=== PATIENT | female | born 1975 | race Hispanic/Latino ===

== ENCOUNTER → 2017-12-22 16:28 | Outpatient (CLI) | payer OTHER, SELFPAY ==
[2017-12-28 14:07] LABS: Lyme IgG P18 Ab Absent (.); Lyme IgG P23 Ab Absent (.); Lyme IgG P28 Ab Absent (.); Lyme IgG P30 Ab Absent (.); Lyme IgG P39 Ab Absent (.); Lyme IgG P41 Ab Absent (.); Lyme IgG P45 Ab Absent (.); Lyme IgG P58 Ab Absent (.); Lyme IgG P66 Ab Absent (.); Lyme IgG P93 Ab Absent (.); Lyme IgM P23 Ab Absent (.); Lyme IgM P39 Ab Absent (.); Lyme IgM P41 Ab Absent (.)
[2017-12-28 15:48] LABS: Lyme IgG WB Interpretation Negative (.); Lyme IgM WB Interpretation Negative (.)
== END ==
PROVIDERS: Family Provider Family Medicine; PCP Family Medicine; Visit Provider Family Medicine
DX: M25.50 Pain in unspecified joint (principal)
CPT/HCPCS: 36415; 86617

== ENCOUNTER → 2018-01-14 06:42 | Outpatient (CLI) | payer OTHER, SELFPAY ==
--- NOTE | 2018-01-14 06:44 | CT_ITS ---
STUDY: CT ABDOMEN AND PELVIS WITH CONTRAST REASON FOR EXAM: Female, 42 years old. Left lower quadrant pain RADIATION DOSAGE (If Supplied By Facility): CTDIvol = ( 13.29 ) mGy, DLP = ( 843.24 ) mGycm TECHNIQUE: Transaxial images were obtained from the lower chest to the upper thighs with oral contrast. 100 ml of Isovue 300 contrast was administered. Sagittal and coronal images were reconstructed. Individualized dose optimization techniques were used for this CT. COMPARISON: November 16, 2016 FINDINGS: The visualized lung bases are unremarkable. There is no pleural effusion. The heart is normal in size. The liver is unremarkable. There are surgical clips in the gallbladder fossa consistent with a prior cholecystectomy. The spleen is unremarkable. The pancreas is unremarkable. The adrenal glands are unremarkable. The right kidney is unremarkable. There is no dilatation of the collecting system in the right kidney. The left kidney is unremarkable. There is no dilatation of the collecting system in the left kidney. The stomach is unremarkable. The small bowel is unremarkable. There is mild wall thickening in the sigmoid. The appendix is surgically absent. The aorta and branch vessels are unremarkable. The inferior vena cava is unremarkable. There are prominent lymph nodes in the right lower quadrant. There is no free fluid in the abdomen. The urinary bladder is decompressed. There is absence of the uterus likely from prior hysterectomy. There are no abnormal masses in the adnexal regions. The soft tissues of the abdominal wall are unremarkable. There are mild degenerative changes in the visualized spine. CT/Abdomen/Pelvis WITH Contrast IMPRESSION: There is mild nonspecific wall thickening in the sigmoid likely secondary to incomplete distention, however a mild colitis cannot be excluded, either infectious or inflammatory. There is no ascites or free air. There are prominent lymph nodes in the right lower quadrant which are likely reactive. Electronically Signed: Aminah Figueredo MD at 0:45 EDT Tel Direct: [phone], Service support ,
== END ==
LOC: CT 06:43
PROVIDERS: Family Provider Family Medicine; PCP Family Medicine; Visit Provider Surgery
DX: R10.32 Left lower quadrant pain (principal); R11.2 Nausea with vomiting, unspecified
CPT/HCPCS: 74177; Q9967

== ENCOUNTER 2018-02-02 13:10 | Day surgery (SDC) | payer OTHER, SELFPAY ==
[2018-02-02] VITALS (8 sets, daily range): BP systolic 87–105; BP diastolic 41–74; PULSE 55–67; RESP 16; TEMP 36.2–36.6; O2SAT 94–100; BMI 29.7
--- NOTE | 2018-02-02 | GASB_PTH ---
PATIENT: DANDRE BURT LOC: EN U#:[id number] AGE/SX: 42/F ROOM: RE02/02/[address]: Dr. Raghav Jimenez MD : 1975 BED: DIS: 02/02/2018 SPEC #: [id number] RECD: 02/03/18 09:12 STATUS: MARY JANE JANNET #: [id number] PERLA: 02/02/18 00:[address]: Raghav Jimenez DEPT: SURGICAL PATHOLOGY RECD BY: Arnoldo Richmond ENTERED: 02/03/18 09:12 SP TYPE: Gastric Bx OTHR DR: Dr. Petty Cook, DO Tissues: A - Gastric mucous membrane B - COLON BIOPSY Procedures: Surgery Specimen Level IV HEADER OPERATION: [place] [place] DIAGNOSIS: Rectal bleeding, constipation, abdominal pain TISSUE SUBMITTED: A ? Antral biopsy for H. pylori and pathology, B ? Random colonic biopsies MICROSCOPIC DIAGNOSIS A. Gastric antrum, biopsy: Mild chronic gastritis. B. Colon, random biopsy: No significant pathologic change. No evidence of colitis. AM:anisha 02/04/18 COMMENT A. The results of immunohistochemistry for Helicobacter pylori will be reported separately ([id number]). MICROSCOPIC DESCRIPTION Slides are reviewed. GROSS DESCRIPTION A - Received in fixative is one container labeled with the patient's name and designated antral biopsy. The specimen consists of one irregular fragment of light felipe soft tissue that measures 0.3 x 0.2 x 0.1 cm. The specimen is totally submitted in one cassette. B - Received in fixative is one container labeled with the patient's name and designated random colon. The specimen consists of multiple irregular fragments of light felipe soft tissue that in aggregate measure 2 x 0.6 x 0.1 cm. The specimen is totally submitted in one cassette. / AM:anisha 02/03/18 TC:3 CPT: 71942 x2
--- NOTE | 2018-02-02 14:24 | PCM.OPRPT ---
Problem List (1) Lower abdominal pain Status: Acute (2) H/O peptic ulcer Status: Acute (3) Bleeding per rectum Status: Acute (4) Constipation Status: Acute Report of Operation Date of Procedure: 02/02/18 Pre-Operative Diagnosis: History of peptic ulcer. Lower abdominal pain. Rectal bleeding. Constipation Post-Operative Diagnosis: Same Surgery/Procedure Performed:: 1. Esophagogastroduodenoscopy with biopsy (cold). Colonoscopy with random colon biopsies Type of Anesthesia:: MAC Description of Procedure: Patient was brought into the endoscopy suite. Back of her throat was sprayed with Cetacaine spray. A bite block was placed. She was given graded anesthesia. The scope was inserted into the back of the oropharynx and directed down through the esophagus into the stomach and into the duodenum without difficulty operative findings: 1. Duodenum: Normal appearance no mass lesions no ulcerations 2. Stomach: Normal appearance no mass lesions no ulcerations minimal gastritis was identified biopsy for H. pylori was obtained. Retroflexion did not show any signs of hiatal hernia. 3. Esophagus: Normal appearance no mass lesions Z line was at about 34 cm and was entirely normal there was no signs of esophagitis there is no signs of bleeding. Colonoscope was inserted in the rectum directed to the rectum, sigmoid colon, descending colon, transverse colon, descending colon, to the cecum. Operative findings: 1. Cecum: Normal appearance no mass lesions normal ileocecal valve. 2. Ascending colon: Normal appearance no mass lesions. 3. Transverse colon: Normal appearance no mass lesions. 4. Descending colon: Normal appearance no mass lesions. 5. Sigmoid colon: Normal appearance no mass lesions few diverticuli identified. 6. Rectum: Normal appearance no mass lesions retroflexion did show some internal hemorrhoids with a question of whether they have been bleeding or not. I did random colon biopsies from the cecum all the way to the rectum. The mucosa did look normal there was no signs of any active bleeding I did irritate the rectum when I retroflexed to take a picture of the hemorrhoids but prior to that the mucosa was normal. There is really no explanation for the pain that she is experiencing at this time based upon my findings from both the upper and lower endoscopy. - Admit VTE Documentation VTE Present on Admission: No VTE Mechan Device Prophylaxis: None VTE Pharm Prophylaxis ordered?: No Reason prophylaxis not ordered:: Treatment Not Indicated
--- NOTE | 2018-02-02 14:30 | IMM_PTH ---
PATIENT: DANDRE BURT LOC: EN U#:[id number] AGE/SX: 42/F ROOM: RE02/02/[address]: Dr. Raghav Jimenez MD : 1975 BED: DIS: 02/02/2018 SPEC #: [id number] RECD: 02/03/18 10:08 STATUS: MARY JANE REQ #: [id number] PERLA: 02/02/18 14:[address]: Raghav Jimenez DEPT: IMMUNOHISTOCHEMISTRY RECD BY: Elisa Sierra ENTERED: 02/03/18 10:09 SP TYPE: IMMUNO OTHR DR: Dr. Petty Cook, DO Tissues: A - Stomach, NOS Procedures: H Pylori (initial) PHYSICIAN & INSTITUTION [place] [id number] SPECIMEN INFORMATION: Tissue Source: A ? Antral biopsy Clinical Info: Rectal bleeding, constipation, abdominal pain Specimen Number: [id number] CPT code: 82507 METHODOLOGY: Deparaffinized sections of prefer/formalin-fixed tissue or PAP/DQ stained slides are incubated with monoclonal/polyclonal antibodies/oligonucleotide probes. Localization is made via biotin free immunoperoxidase method. Appropriate controls are performed and reacted as expected. Results on target cell population are indicated in the following table: RESULTS: ANTIBODY / CLONE RESULT Block A H Pylori (polyclonal) negative These tests were developed and their performance characteristics determined by [facility]. They may not have been cleared or approved by the U.S. Food and Drug Administration. The FDA has determined that such clearance or approval is not necessary. INTERPRETATION: A. Antrum, biopsy: Negative for Helicobacter pylori organisms. AM:anisha 02/04/18
[2018-02-02] MEDS: Morphine 2 MG/ML Syringe IV (14:53)
== END 2018-02-02 17:18 | disposition home or self-care (01) ==
LOC: EN 13:11 → AC 13:18
PROVIDERS: Family Provider Family Medicine; PCP Family Medicine; Visit Provider Surgery
PROC: 0DJD8ZZ Inspection of Lower Intestinal Tract, Via Natural or Artificial Opening Endoscopic (ICD-10-PCS; CPT 45378; principal; 2018-02-02 14:25)
DX: K29.50 Unspecified chronic gastritis without bleeding (principal); K57.30 Diverticulosis of large intestine without perforation or abscess without bleeding; K64.8 Other hemorrhoids; K62.5 Hemorrhage of anus and rectum; K59.00 Constipation, unspecified; K21.9 Gastro-esophageal reflux disease without esophagitis; R10.32 Left lower quadrant pain; Z87.11 Personal history of peptic ulcer disease; F17.200 Nicotine dependence, unspecified, uncomplicated
CPT/HCPCS: 43239; 45380; 88305; 88342; J7040; J7120

== ENCOUNTER 2018-12-07 12:27 | Emergency (ER) | payer OTHER, SELFPAY ==
[2018-12-07 12:28] VITALS: BP 116/69; PULSE 70; RESP 16; TEMP 36.4; BMI 30.6
--- NOTE | 2018-12-07 12:36 | EKG12_ITS ---
Test Reason : NEURO S/X Blood Pressure : / mmHG Vent. Rate : 070 BPM Atrial Rate : 070 BPM P-R Int : 158 ms QRS Dur : 086 ms QT Int : 406 ms P-R-T Axes : 032 031 009 degrees QTc Int : 438 ms Normal sinus rhythm Normal ECG Confirmed by AMELIE ANTUNEZ, WINSOME ([id number]), development editor TYREL GLOVER ([id number]) on 12/12/2018 1:26:05 PM Referred By: VERO Confirmed By:WINSOME KINSEY MD
--- NOTE | 2018-12-07 12:36 | CT_ITS ---
STUDY: CT BRAIN WITHOUT CONTRAST REASON FOR EXAM: Female, 42 years old. Numbness. RADIATION DOSAGE (If Supplied By Facility): CTDIvol = ( 44.99 ) mGy, DLP = ( 762.36 ) mGycm TECHNIQUE: Transaxial CT imaging of the brain was performed without administration of intravenous contrast material. Individualized dose optimization techniques were used for this CT. COMPARISON: No relevant priors. FINDINGS: Normal soft tissue structures. Normal calvarium. Normal size ventricles and extra-axial spaces for the patient's age. Normal white matter tracts of the cerebral hemispheres. Normal basal ganglia and thalami. Normal brainstem. Normal cerebellum. There is no intracranial hemorrhage. There are no findings of an acute ischemic infarction. Minimal mucosal thickening at the base of the right maxillary sinus along the medial wall. CT/Brain/Head without Contrast IMPRESSION: Normal unenhanced CT scan of the brain. Electronically Signed: Cheng Hughes, at 14:00 EDT , Service support ,
--- NOTE | 2018-12-07 12:47 | RAD_ITS ---
STUDY: X-RAY CHEST REASON FOR EXAM: Female, 42 years old. Chest pain. TECHNIQUE: Single AP portable view of the chest. COMPARISON: None. FINDINGS: EKG electrodes are seen. The lungs are clear and expanded. There is no demonstrated pleural abnormality. Normal size heart. Normal mediastinum and kanwal. Normal visualized pulmonary arteries. Normal visualized aortic arch and descending thoracic aorta. Normal visualized thoracic spine. Normal visualized ribs, clavicles, and shoulders. There is no demonstrated abnormality of the visualized soft tissue structures of the upper abdomen. RAD/Chest 1 View (Portable) IMPRESSION: Normal x-ray examination of the chest. Electronically Signed: Cheng Hughes, at 13:13 EDT , Service support ,
--- NOTE | 2018-12-07 12:53 | ED.DCSUM_ITS ---
History of Present Illness Chief Complaint: Neuro S/Sx Informant: Patient, Family Onset: Days Narrative: The patient presents with headache diffuse consistent with her chronic migraine headache history disorder. She had an extensive prior evaluation for the headache disorder has been seen by [facility] headache specialists imaging studies etc. she has no history of brain tumor brain aneurysm, at one point time she was receiving Botox injections monthly as she has daily headaches however her status changed and she could not arrange to have these injections sure she has not had them for 2 years, she indicates she normally will take Naprosyn almost daily for headache. She reports for days she has had her typical headache that has not improved with the Naprosyn she also reports she has had intermittent numbness to her face and her left upper extremity that she has had in the past related to headaches or other conditions. She has no history of PA PE or DVT she has been evaluated by her reports for stroke in the past and this work-up was unremarkable. Her chief complaint right now is the headaches and the facial numbness and the numbness that is diffuse to her left upper extremity she no reports no change in vision normal neurologic function able to extend all of her daily activities, no fever no cough no chest pain no abdominal pain no history of PA PE DVT Past Medical History - Allergies and Home Meds Allergies/Adverse Reactions: Allergies No Known Allergies Allergy (Verified 12/07/18 12:30) Primary Care Physician: Petty Cook DO [Primary Care Provider] - Past Medical History: - - Chronic daily headaches Smoking Status: Current every day smoker Review of Systems General: Denies: Chills, Fever, Sweats Eyes: Denies: Visual changes - bilaterally, Diplopia ENT: Denies: Rhinorrhea, Sore throat Cardiovascular: Denies: Chest pain, Palpitations Respiratory: Denies: Dyspnea, Cough, Dyspnea on exertion Gastrointestinal: Denies: Abdominal pain, Nausea, Vomiting, Diarrhea, Melena, Hematochezia Genitourinary: Denies: Dysuria, Hematuria, Frequency Musculoskeletal: Denies: Back pain, Extremity Pain Skin: Denies: Rash, Wounds Neurological: Reports: Headache, Numbness. Denies: Weakness Physical Exam Vital Signs/Narrative: Vital Signs Temp Pulse Resp BP 12/07/18 12:28 97.6 F L 70 16 116/69 General: Well nourished, Well developed, No Acute Distress Head: Normocephalic, Atraumatic Eyes: Perrl, EOMI ENT: Moist mucous membranes, No rhinorrhea Neck: Supple, Nontender Cardiovascular: Regular rate, Regular rhythm, No murmurs Respiratory: No distress, CTA bilaterally, Chest nontender Abdomen: Soft, Nontender, Nondistended, Normal bowel sounds Back: Nontender, Normal Inspection Extremities: Nontender, No edema Skin: Normal color, No rash Neurological: Alert, Oriented x3, Cranial nerves II-XII grossly intact, Normal Strength, Normal Sensation, - - Neurologic exam her cranial nerves her speech motor or sensory cerebellar gait unremarkable NIH 0 she subjectively takes her hand and draws it across her chin complaining of a numbness sensation here, she then takes it and draws it across her left shoulder and left upper arm complaining of numbness here she has full range of motion of upper and lower extremities there is no signs of obvious sensory motor or cerebellar deficit Psychological: Normal affect, Normal Mood Diagnostic/Tx/Re-eval - Medical Decision Making Her complaints of the above screening labs head CT Compazine Benadryl for the headache The patient's head CT and screening labs are all generally unremarkable see those reports, and reevaluation her headache is totally resolved the numbness to her chin is resolved, her neurologic exam remains unremarkable NIH 0 had a long conversation with her and her we discussed the concept of headaches this numbness stroke TIA etc. she had a CT scan 2013 for similar issues in the CT was negative then we discussed further management options they prefer outpatient management we discussed the ability for her to be seen again by the headache specialist she saw in [place] and they thought that would be a possibility but there are insurance had switched to what they described as [place] insurance and they would not sure if this insurance coverage visits the [facility] but they would look into that in addition I explained to them that [facility] had a neurologist that could see her for her headache syndrome her intermittent numbness etc. she may require additional studies or other therapy she could use for headaches if Botox injections were not available they were comfortable with this discharge plan wanted to go home with follow-up and return for change in symptoms and again she is completely asymptomatic now Home stable Final impression Acute recurrent headache disorder, history of daily headaches, history of intermittent numbness to the face and left shoulder ED Disposition - Plan for ED Patient: Diagnosis: Headache Instructions: HEADACHE, Migraine (Classical), HEADACHE, Unspecified Prescriptions: Hydrocodone Bitart/Apap 5-325 [[place] 5MG-325MG] 1 tab PO Q4H PRN PRN 2 Days #7 tab PRN Reason: Pain Prescription Printed Referrals: Petty Cook DO [Primary Care Provider] - Additional Instructions: Call your insurance company and follow-up with your headache specialist at [facility] or neurology service with [facility]
[2018-12-07 13:03] VITALS: O2SAT 97
[2018-12-07] MEDS: proCHLORPERazine 10 MG/2 ML Vial IV (13:14)
[2018-12-07] MEDS: DiphenhydrAMINE 50 MG/ML Syringe 25 MG IV (13:14)
[2018-12-07] MEDS: Morphine 4 MG/ML Syringe IV (13:14)
[2018-12-07] MEDS: 0.9% Normal Saline 1,000 ML 999 ML IV (13:14)
[2018-12-07 13:17] VITALS: BP 106/59; PULSE 67; RESP 20; O2SAT 96
[2018-12-07 13:18] LABS: Absolute Lymphocyte Count 4.11 X10^3/ul (0.83-4.51); Absolute Neutrophil Count 5.6 X10^3/uL (2.0-7.7); Basophil# 0.02 X10^3/uL; Basophil% 0.2 % (0-1); Eosinophil# 0.14 X10^3/uL; Eosinophils% 1.3 % (0-5); Hematocrit 36.8 % (37-47); Hemoglobin 12.3 g/dl (12.0-15.0); Lymphocyte # 4.11 X10^3/ul (4.0); Mean Corp Hgb Conc 33.4 g/gl (32-36); Mean Corpuscular Hgb 28.5 pg (27.0-32.0); Mean Corpuscular Volume 85.4 fL (81-99); Mean Platelet Vol. 9.6 fl (6.2-12.0); Monocyte# 0.88 X10^3/uL; Monocyte% 8.1 % (0-10); Neutrophil # 5.64 X10^3/uL (2.7-7.7); Neutrophil % 52.2 % (47-70); Platelet Count 330 K/mm3 (150-450); RBC Distribution Width CV 12.8 % (11.6-14.6); RBC Distribution Width SD 39.6 fl (35.1-43.9); Red Blood Count 4.31 M/mm3 (4.2-5.4); White Blood Count 10.8 K/mm3 (4.4-11.0)
[2018-12-07 13:20] LABS: POSITIVE COUNT NO; POSITIVE DIFFERENTIAL NO; POSITIVE MORPHOLOGY NO
[2018-12-07 13:31] LABS: Anion Gap 7 (5-15); BUN 11 mg/dL (7-18); Calcium,Total 8.5 mg/dL (8.5-10.1); Chloride 107 mmol/L (98-107); EST Glomerular Filtration Rate 143 mL/min (>60); Est Glom Filt Rate - Afr Amer 173 mL/min (>60); Glucose 125 mg/dL (74-106); Potassium 3.6 mmol/L (3.5-5.1); Sodium Level 138 mmol/L (136-145)
[2018-12-07 14:13] VITALS: BP 132/79; PULSE 66; RESP 15; O2SAT 98
[2018-12-07 15:03] VITALS: BP 102/74; PULSE 61; RESP 15; O2SAT 97
== END 2018-12-07 15:08 | disposition home or self-care (01) ==
LOC: ED 13:44
PROVIDERS: Emergency Provider Emergency Medicine; Family Provider Family Medicine; PCP Family Medicine
DX: R51 Headache (principal); R20.0 Anesthesia of skin; F17.200 Nicotine dependence, unspecified, uncomplicated
CPT/HCPCS: 70450; 71045; 80048; 84484; 85025; 93005; 96361; 96374; 96375; 99284

== ENCOUNTER → 2018-12-15 15:16 | Outpatient (CLI) | payer SELFPAY ==
[2018-12-07 12:28] VITALS: BMI 30.6
--- NOTE | 2018-12-15 15:20 | RAD_ITS ---
STUDY: X-RAY - CERVICAL SPINE REASON FOR EXAM: Female, 43 years old. Neck pain and pain in both arms and shoulders, pain when raising arm above head TECHNIQUE: 7 view(s) of the cervical spine were obtained. COMPARISON: None FINDINGS: There is no significant disc narrowing at any levels of cervical spine. Tiny anterior osteophyte versus limbus vertebra anterior to the inferior endplate of C5. Normal vertebral body height and alignment. Straightening of the expected cervical lordosis. No apparent facet arthropathy. Odontoid and lateral masses intact and aligned. No apparent foraminal stenosis or posterior element fracture in the oblique views. Prevertebral soft tissues normal. RAD/Cerv Spine 4 or 5 Views IMPRESSION: Straightening of the cervical lordosis. There is no evidence of acute fracture or traumatic subluxation and there are no significant spondylotic features. Electronically Signed: James Phan MD at 9:21 EDT Tel , Service support ,
== END ==
PROVIDERS: Family Provider Family Medicine; PCP Family Medicine; Referring Provider Family Medicine; Visit Provider Family Medicine
DX: M79.601 Pain in right arm (principal)
CPT/HCPCS: 72050

== ENCOUNTER → 2019-06-16 15:20 | Outpatient (CLI) | payer OTHER, SELFPAY ==
--- NOTE | 2019-06-16 15:23 | BI_ITS ---
MAMMOGRAPHY - BILATERAL SCREENING REASON FOR EXAM: Female, 43 years old. Routine annual screening examination. PERTINENT HISTORY: Non-contributory. TECHNIQUE: Digital bilateral breast teresita (3D mammographic acquisition) in the CC and MLO projections. 2-D mediolateral oblique (MLO) and craniocaudad (CC) views of both breasts were obtained. CAD: Full Field Digital Mammography with Computer Added Detection was performed. COMPARISON: Comparison is made with prior study dated December 14, 2016 and December 13, 2015. FINDINGS: Breast Composition: The breasts are heterogeneously dense, which may obscure small masses. There are no dominant masses or suspicious calcifications. Stable benign-appearing bilateral axillary lymph nodes. No other significant abnormalities are identified. There has been no significant change since the prior study. BI/SCREEN MAMM (CAD) W/TERESITA BILAT IMPRESSION: Stable bilateral screening mammogram. Yearly follow-up mammogram recommended. (A) ASSESSMENT CATEGORY: BIRADS Category 2: Benign. A letter regarding these results will be sent to the patient by the facility within 30 days. Approximately 10% of breast cancers are not detected by mammography. A normal mammogram should not delay biopsy of a clinically suspicious abnormality. [id number] Electronically Signed: Cheng Hughes, at 8:22 EST , Service support ,
== END ==
PROVIDERS: Family Provider Family Medicine; PCP Family Medicine; Referring Provider Family Medicine; Visit Provider Family Medicine
DX: Z12.31 Encounter for screening mammogram for malignant neoplasm of breast (principal)
CPT/HCPCS: 77063; 77067

== ENCOUNTER → 2019-07-06 15:43 | Outpatient (CLI) | payer OTHER, SELFPAY ==
[2019-07-06 17:21] LABS: Absolute Lymphocyte Count 3.81 X10^3/uL (0.83-4.51); Absolute Neutrophil Count 4.6 X10^3/uL (2.0-7.7); Basophil# 0.05 X10^3/uL; Basophil% 0.5 % (0-1); Eosinophil# 0.12 X10^3/uL; Eosinophils% 1.3 % (0-5); Hematocrit 40.9 % (37-47); Hemoglobin 13.4 g/dL (12.0-15.0); Lymphocyte # 3.81 X10^3/ul (4.0); Lymphocyte % 41.5 % (19-41); Mean Corp Hgb Conc 32.8 g/dL (32-36); Mean Corpuscular Hgb 28.8 pg (27.0-32.0); Mean Corpuscular Volume 87.8 fL (81-99); Monocyte# 0.63 X10^3/uL; Monocyte% 6.9 % (0-10); NRBC Flagged by Analyzer 0 % (0-5); Neutrophil # 4.56 X10^3/uL (2.7-7.7); Neutrophil % 49.6 % (47-70); Platelet Count 378 K/mm3 (150-450); RBC Distribution Width CV 12.4 % (11.6-14.6); Red Blood Count 4.66 M/mm3 (4.2-5.4); White Blood Count 9.2 K/mm3 (4.4-11.0)
[2019-07-06 17:43] LABS: ALB/GLOB Ratio 0.9 RATIO (0.9-2.4); AST(SGOT) 52 U/L (15-37); Alanine Aminotransfer ALT/SGPT 127 U/L (13-56); Albumin, Serum 3.9 g/dL (3.2-5.0); Alkaline Phosphatase 119 U/L (45-117); Anion Gap 6 (5-15); BUN 8 mg/dL (7-18); BUN/Creat Ratio 14.2 RATIO (10-20); Calcium,Total 8.6 mg/dL (8.5-10.1); Chloride 108 mmol/L (98-107); Creatinine, Serum 0.56 mg/dL (0.55-1.02); EST Glomerular Filtration Rate 125 mL/min (>60); Est Glom Filt Rate - Afr Amer 151 mL/min (>60); Globulin 4.3 g/dL (2.2-4.2); Glucose 98 mg/dL (74-106); Potassium 3.8 mmol/L (3.5-5.1); Protein, Total 8.2 g/dL (6.4-8.2); Sodium Level 140 mmol/L (136-145); Thyroid Stim Hormone (TSH) 2.81 uIU/mL (0.358-3.74)
[2019-07-06 17:44] LABS: Vitamin B12 523 pg/mL (211-911)
== END ==
PROVIDERS: PCP Family Medicine; Visit Provider Family Medicine
DX: K21.9 Gastro-esophageal reflux disease without esophagitis (principal); I95.9 Hypotension, unspecified; M67.912 Unspecified disorder of synovium and tendon, left shoulder; K76.0 Fatty (change of) liver, not elsewhere classified
CPT/HCPCS: 36415; 80053; 82607; 84443; 85025

== ENCOUNTER → 2019-07-12 16:53 | Outpatient (CLI) | payer OTHER, SELFPAY ==
--- NOTE | 2019-07-12 17:10 | RAD_ITS ---
STUDY: X-RAY - LEFT SHOULDER REASON FOR EXAM: Left shoulder pain. TECHNIQUE: 4 view(s) of the shoulder. COMPARISON: None. FINDINGS: Normal glenohumeral articulation. Normal acromioclavicular joint. Normal acromion. Normal humeral head and visualized proximal humerus. The soft tissue structures are unremarkable. Normal visualized pulmonary apex. RAD/Shoulder min 2 Views IMPRESSION: Normal x-ray examination of the left shoulder. Electronically Signed: Betito Das MD at 9:28 EST Tel , Service support ,
== END ==
PROVIDERS: PCP Family Medicine; Referring Provider Family Medicine; Visit Provider Family Medicine
DX: M67.912 Unspecified disorder of synovium and tendon, left shoulder (principal)
CPT/HCPCS: 73030

== ENCOUNTER → 2019-11-03 15:53 | Outpatient (CLI) | payer OTHER, SELFPAY ==
[2019-11-03 17:47] LABS: AST(SGOT) 94 U/L (15-37); Alanine Aminotransfer ALT/SGPT 202 U/L (13-56); Albumin, Serum 3.7 g/dL (3.2-5.0); Alkaline Phosphatase 100 U/L (45-117); Bilirubin, Direct 0.16 mg/dL (0.00-0.30); Globulin 4.2 g/dL (2.2-4.2); Protein, Total 7.9 g/dL (6.4-8.2)
== END ==
PROVIDERS: PCP Family Medicine; Visit Provider Family Medicine
DX: R74.8 Abnormal levels of other serum enzymes (principal)
CPT/HCPCS: 36415; 80076

== ENCOUNTER → 2019-11-16 10:00 | Outpatient (CLI) | payer OTHER, SELFPAY ==
--- NOTE | 2019-11-16 10:04 | US_ITS ---
STUDY: ABDOMINAL ULTRASOUND - RIGHT UPPER QUADRANT REASON FOR VISIT: Female, 43 years old ABDOMEN PAIN MOSTLY RUQ TECHNIQUE: Ultrasound evaluation of the right upper quadrant was performed with real-time and static guzman-scale imaging. TECHNICAL QUALITY: Adequate. COMPARISON: None. FINDINGS: Liver: The liver measures 14.4 cm. There is increased echogenicity consistent with fatty infiltration. The bile ducts are within normal limits. There is hepatic color flow. The direction of portal flow is hepatopetal. There is no demonstrated mass lesion. Gallbladder: The patient is status post cholecystectomy. Common Bile Duct (C.B.D.): The common bile duct measures 3.8 mm. Pancreas: Normal size of the head, body and tail of the pancreas. There is normal echogenicity of the pancreas. There is no demonstrated pancreatic mass or cyst. Right Kidney: Normal size of the right kidney. The right kidney measures 12 cm x 5.2 cm x 5.3 cm. Normal renal cortex. The right cortex measures 1.4 cm. There is no demonstrated renal mass or cyst. There is no right hydronephrosis. US/Abdomen Limited IMPRESSION: Status post cholecystectomy. Fatty infiltration of the liver. Electronically Signed: Cheng Hughes, at 11:33 EDT , Service support ,
== END ==
LOC: US 10:02
PROVIDERS: PCP Family Medicine; Referring Provider Family Medicine; Visit Provider Family Medicine
DX: R74.8 Abnormal levels of other serum enzymes (principal)
CPT/HCPCS: 76705

== ENCOUNTER → 2020-02-15 08:25 | Outpatient (CLI) | payer OTHER, SELFPAY ==
[2020-02-15 13:12] LABS: ALB/GLOB Ratio 0.9 RATIO (0.9-2.4); AST(SGOT) 54 U/L (15-37); Alanine Aminotransfer ALT/SGPT 129 U/L (13-56); Albumin, Serum 3.7 g/dL (3.2-5.0); Alkaline Phosphatase 96 U/L (45-117); Anion Gap 7 (5-15); BUN 11 mg/dL (7-18); BUN/Creat Ratio 19.5 RATIO (10-20); Calcium,Total 8.7 mg/dL (8.5-10.1); Chloride 108 mmol/L (98-107); Cholesterol 178 mg/dL (200); Creatinine, Serum 0.56 mg/dL (0.55-1.02); EST Glomerular Filtration Rate 124 mL/min (>60); Est Glom Filt Rate - Afr Amer 150 mL/min (>60); Globulin 4.1 g/dL (2.2-4.2); Glucose 130 mg/dL (74-106); High Density Lipoprotein 38 mg/dL; Potassium 3.7 mmol/L (3.5-5.1); Protein, Total 7.8 g/dL (6.4-8.2); Sodium Level 140 mmol/L (136-145); Triglycerides 133 mg/dL; Very Low Density Lipoprotein 27 mg/dL (5-40)
[2020-02-15 13:36] LABS: Microalbumin,Random Urine 50.7 mg/L (NO RANGE EST.); Microalbumin:Creatinine Ratio 11.4 mg/g CRE (<30 mg/g CRE)
== END ==
PROVIDERS: PCP Family Medicine; Visit Provider Family Medicine
DX: E11.9 Type 2 diabetes mellitus without complications (principal)
CPT/HCPCS: 36415; 80053; 80061; 82043; 82570

== ENCOUNTER → 2020-05-23 14:14 | Outpatient (CLI) | payer OTHER, SELFPAY ==
[2020-05-23 17:32] LABS: AST(SGOT) 43 U/L (15-37); Alanine Aminotransfer ALT/SGPT 92 U/L (13-56); Albumin, Serum 3.7 g/dL (3.2-5.0); Alkaline Phosphatase 113 U/L (45-117); Anion Gap 7 (5-15); BUN 11 mg/dL (7-18); BUN/Creat Ratio 17.8 RATIO (10-20); Bilirubin, Direct 0.05 mg/dL (0.00-0.30); Calcium,Total 8.4 mg/dL (8.5-10.1); Chloride 103 mmol/L (98-107); Creatinine, Serum 0.62 mg/dL (0.55-1.02); EST Glomerular Filtration Rate 111 mL/min (>60); Est Glom Filt Rate - Afr Amer 135 mL/min (>60); Globulin 4.1 g/dL (2.2-4.2); Glucose 98 mg/dL (74-106); Potassium 3.5 mmol/L (3.5-5.1); Protein, Total 7.8 g/dL (6.4-8.2); Sodium Level 136 mmol/L (136-145)
== END ==
LOC: BFHLAB 14:15
PROVIDERS: PCP Family Medicine; Visit Provider Family Medicine
DX: E11.9 Type 2 diabetes mellitus without complications (principal); K76.0 Fatty (change of) liver, not elsewhere classified
CPT/HCPCS: 36415; 80048; 80076

== ENCOUNTER → 2021-03-03 | Outpatient (CLI) | payer OTHER, SELFPAY | END | disposition home or self-care (01) | LOC: LABSPEC 03-04 09:28 | PROVIDERS: PCP Family Medicine; Referring Provider Family Medicine; Visit Provider Family Medicine | DX: Z20.822 Contact with and (suspected) exposure to COVID-19 (principal) | CPT/HCPCS: 87635; U0005; U0003 ==

== ENCOUNTER → 2022-01-15 | Outpatient (CLI) | payer OTHER, SELFPAY ==
[2022-01-15 12:31] LABS: Microalbumin,Random Urine 25.1 mg/L (NO RANGE EST.); Microalbumin:Creatinine Ratio 10.2 mg/g CRE (<30 mg/g CRE)
[2022-01-15 12:57] LABS: ALB/GLOB Ratio 0.8 RATIO (0.9-2.4); AST(SGOT) 38 U/L (15-37); Alanine Aminotransfer ALT/SGPT 73 U/L (13-56); Albumin, Serum 3.5 g/dL (3.2-5.0); Alkaline Phosphatase 99 U/L (45-117); Anion Gap 6 (5-15); BUN 10 mg/dL (7-18); BUN/Creat Ratio 18.6 RATIO (10-20); Calcium,Total 8.3 mg/dL (8.5-10.1); Chloride 108 mmol/L (98-107); Cholesterol 142 mg/dL (200); Creatinine, Serum 0.54 mg/dL (0.55-1.02); EST Glomerular Filtration Rate 130 mL/min (>60); Est Glom Filt Rate - Afr Amer 157 mL/min (>60); Globulin 4.4 g/dL (2.2-4.2); Glucose 119 mg/dL (74-106); High Density Lipoprotein 39 mg/dL; Potassium 4.2 mmol/L (3.5-5.1); Protein, Total 7.9 g/dL (6.4-8.2); Sodium Level 138 mmol/L (136-145); Thyroid Stim Hormone (TSH) 3.47 uIU/mL (0.358-3.74); Triglycerides 97 mg/dL; Very Low Density Lipoprotein 19 mg/dL (5-40)
== END | disposition home or self-care (01) ==
PROVIDERS: PCP Family Medicine; Visit Provider Internal Medicine Endocrinology, Diabetes & Metabolism
DX: E11.9 Type 2 diabetes mellitus without complications (principal)
CPT/HCPCS: 36415; 80053; 80061; 82043; 82570; 84443

== ENCOUNTER → 2022-01-16 | Outpatient (CLI) | payer OTHER, SELFPAY ==
--- NOTE | 2022-01-16 12:35 | RAD_ITS ---
STUDY: X-RAY CHEST REASON FOR EXAM: Female, 46 years old. COUGH TECHNIQUE: Frontal and lateral views of the chest. COMPARISON: 12/07/2018 FINDINGS: The lungs are clear and expanded. There is no demonstrated pleural abnormality. Normal size heart. Normal mediastinum and kanwal. Normal visualized pulmonary arteries. Normal visualized aortic arch and descending thoracic aorta. Normal visualized thoracic spine. Normal visualized ribs, clavicles, and shoulders. There are surgical clips within the right upper quadrant consistent with prior cholecystectomy. RAD/Chest PA and Lateral IMPRESSION: No acute cardiopulmonary process. Electronically Signed: Alma Tejada MD at 14:18 EDT ,
[2022-01-16 15:26] LABS: Rheumatoid Factor < 10.0 IU/mL (<15)
[2022-01-16 15:57] LABS: Erythrocyte Sedimentation Rate 29 mm/hr (0-30)
[2022-01-20 08:48] LABS: CCP IgG Antibodies 5 units (0-19)
[2022-01-20 09:18] LABS: ANTINUCLEAR ANTIBODIES DIRECT Negative (Negative)
== END | disposition home or self-care (01) ==
LOC: MTLAB 12:33
PROVIDERS: PCP Family Medicine; Referring Provider Family Medicine; Visit Provider Family Medicine
DX: M25.50 Pain in unspecified joint (principal); R05.9 Cough, unspecified
CPT/HCPCS: 36415; 71046; 85652; 86038; 86140; 86200; 86431; 87635; U0003; U0005

== ENCOUNTER → 2022-02-03 | Outpatient (CLI) | payer OTHER, SELFPAY ==
--- NOTE | 2022-02-03 09:57 | BI_ITS ---
MAMMOGRAPHY - BILATERAL SCREENING REASON FOR EXAM: Female, 46 years old. Routine annual screening examination. PERTINENT HISTORY: Non-contributory. Occasional bilateral breast discharge. TECHNIQUE: Digital bilateral breast teresita (3D mammographic acquisition) in the CC and MLO projections. 2-D mediolateral oblique (MLO) and craniocaudad (CC) views of both breasts were obtained. CAD: Full Field Digital Mammography with Computer Added Detection was performed. COMPARISON: Comparison is made with prior study dated 06/16/2019 and 12/14/2016. FINDINGS: Breast Composition: The breasts are heterogeneously dense, which may obscure small masses. There are no dominant masses or suspicious calcifications. Stable small benign-appearing bilateral axillary lymph nodes. No other significant abnormalities are identified. There has been no significant change since the prior study. BI/SCRN MAMM (CAD)W/TERESITA BILAT IMPRESSION: Stable bilateral screening mammogram. Yearly follow-up mammogram recommended. (A) ASSESSMENT CATEGORY: BIRADS Category 2: Benign. A letter regarding these results will be sent to the patient by the facility within 30 days. Approximately 10% of breast cancers are not detected by mammography. A normal mammogram should not delay biopsy of a clinically suspicious abnormality. [id number] Electronically Signed: Cheng Hughes MD at 10:41 EDT ,
== END | disposition home or self-care (01) ==
LOC: OPBI 09:56
PROVIDERS: PCP Family Medicine; Visit Provider Family Medicine
DX: Z12.31 Encounter for screening mammogram for malignant neoplasm of breast (principal); N64.52 Nipple discharge
CPT/HCPCS: 77063; 77067

== ENCOUNTER → 2022-06-29 | Outpatient (CLI) | payer OTHER, SELFPAY ==
[2022-06-29 15:24] LABS: Absolute Lymphocyte Count 4.45 X10^3/uL (0.83-4.51); Absolute Neutrophil Count 6.8 X10^3/uL (2.0-7.7); Basophil# 0.03 X10^3/uL; Basophil% 0.2 % (0-1); Eosinophil# 0.14 X10^3/uL; Eosinophils% 1.2 % (0-5); Hematocrit 39.1 % (37-47); Lymphocyte # 4.45 X10^3/ul (0.83-4.51); Lymphocyte % 36.7 % (19-41); Mean Corp Hgb Conc 33.2 g/dL (32-36); Mean Corpuscular Hgb 29.5 pg (27.0-32.0); Mean Corpuscular Volume 88.7 fL (81-99); Mean Platelet Vol. 10.1 fl (6.2-12.0); Monocyte# 0.62 X10^3/uL; Monocyte% 5.1 % (0-10); NRBC Flagged by Analyzer 0 % (0-5); Neutrophil # 6.84 X10^3/uL (2.7-7.7); Neutrophil % 56.4 % (47-70); Platelet Count 396 K/mm3 (150-450); RBC Distribution Width CV 12.8 % (11.6-14.6); RBC Distribution Width SD 41.4 fl (35.1-43.9); Red Blood Count 4.41 M/mm3 (4.2-5.4); White Blood Count 12.1 K/mm3 (4.4-11.0)
[2022-06-29 15:26] LABS: Erythrocyte Sedimentation Rate 31 mm/hr (0-30)
[2022-06-29 15:29] LABS: Vitamin B12 427 pg/mL (211-911)
[2022-06-29 15:43] LABS: ALB/GLOB Ratio 0.8 RATIO (0.9-2.4); AST(SGOT) 26 U/L (15-37); Alanine Aminotransfer ALT/SGPT 62 U/L (13-56); Albumin, Serum 3.5 g/dL (3.2-5.0); Alkaline Phosphatase 92 U/L (45-117); Anion Gap 8 (5-15); BUN 11 mg/dL (7-18); BUN/Creat Ratio 15.5 RATIO (10-20); CRP 8.44 mg/L (0.0-3.0); Calcium,Total 8.3 mg/dL (8.5-10.1); Chloride 105 mmol/L (98-107); Creatinine, Serum 0.71 mg/dL (0.55-1.02); EST Glomerular Filtration Rate 94 mL/min (>60); Est Glom Filt Rate - Afr Amer 114 mL/min (>60); Globulin 4.5 g/dL (2.2-4.2); Glucose 188 mg/dL (74-106); Potassium 3.8 mmol/L (3.5-5.1); Rheumatoid Factor < 10.0 IU/mL (<15); Sodium Level 138 mmol/L (136-145)
[2022-07-01 16:26] LABS: ANTINUCLEAR ANTIBODIES DIRECT Negative (Negative)
== END | disposition home or self-care (01) ==
LOC: BFHLAB 11:50
PROVIDERS: PCP Family Medicine
DX: M25.50 Pain in unspecified joint (principal); R20.2 Paresthesia of skin
CPT/HCPCS: 36415; 80053; 82607; 84443; 85025; 85652; 86038; 86140; 86431

== ENCOUNTER 2022-07-27 18:36 | Emergency (ER) | payer OTHER, SELFPAY ==
[2022-07-27 18:37] VITALS: BP 119/67; PULSE 79; RESP 14; TEMP 36.2; O2SAT 97; BMI 30.4
--- NOTE | 2022-07-27 19:39 | EX.ED.UPPERE ---
HPI History of Present Illness HPI Narrative: Right hand injury at work. Caught a piece of machinery. Complaining of right thumb and index finger pain and swelling. [id number]. No prior history or surgery. Chief Complaint: Upper Extremity Injury Informant: patient and family Occured/Mechanism Mechanism/Context: Yes injury and Yes blunt trauma Onset/Context/Timing Onset: Today and Hours Context: Sudden Onset Timing: Continuous Quality of Pain: Dull and Aching Current Severity: Mild Maximum Severity: Mild Associated Symptoms Associated Symptoms: Negative for Parasthesia, Weakness or Loss of Funtion Narrative Narrative: 46-year-old female history of diabetes. Speaks [place] Citizen daughter here is interpreting for her. She was at work today at [employer] when her right hand caught in conveyor belt injuring her right index finger and right thumb. No prior history of surgery to this hand. Denies any other injuries. Prior similar symptoms: No Recent Illness/Hospitalization: No PFSH PFSH Medical History Anxiety Constipation Diabetes mellitus Internal hemorrhoid Overweight (BMI 25.0-29.9) Tobacco abuse Home Medications pantoprazole 40 mg tablet,delayed release 40 mg PO DAILY #90 tabs 07/20/22 [Rx Last Taken Unknown] Allergy/AdvReac Type Severity Reaction Status Date / Time metformin AdvReac Severe Abd Verified 07/27/22 18:37 cramps/diarrhea Family History Father Diabetes Mother Diabetes Surgical History History of appendectomy History of colonoscopy (~02/02/18) History of esophagogastroduodenoscopy (EGD) (~02/02/18) History of hysterectomy History of laparoscopic cholecystectomy Social History Smoking Status: Current every day smoker tobacco type: cigarettes ROS ROS ED ROS Narrative Denies recent illness. Review of Systems ROS Unobtainable: Denies due to encephalopathy Constitutional Constitutional ED: Denies chills or fever(s) Eyes Eyes: Denies blurry vision ENT ENT ED: Denies ear pain Cardiovascular Cardiovascular: Denies chest pain Respiratory/Chest Respiratory/Chest: Denies cough or dyspnea Gastrointestinal Gastrointestinal: Denies abdominal pain Genitourinary Genitourinary ED: Denies dysuria or hematuria Musculoskeletal Musculoskeletal: Denies back pain Integumentary Denies abscess Neurologic Neurologic: Denies headache(s) Psychiatric Psychiatric: Denies anxiety or depression Endocrine Endocrinology: Denies cold intolerance Hematologic/Lymphatic Hematologic/Lymphatic: Denies easy bleeding or easy bruising Allergic/Immunologic Allergic/Immunologic ED: Denies mouth swelling or tongue swelling EXAM Physical Exam Narrative Exam Narrative: 46-year-old female. Vital signs stable afebrile. H EENT exam unremarkable neck nontender. Lungs clear. Heart regular rhythm. Chest wall nontender. Abdomen soft nontender. Moving all 4 extremities. Specifically right thumb index finger swollen and tender. No deformity. Decreased range of motion due to pain and swelling. No laceration. He has neurovascular intact. Wrist and forearm are nontender. Otherwise exam unremarkable. Const Vital Signs: 07/27/22 18:37 Temperature 97.1 F L Temperature Source Temporal Pulse Rate 79 Respiratory Rate 14 Blood Pressure 119/67 Blood Pressure Mean 84 Pulse Ox 97 Oxygen Delivery Method Room Air Positive well nourished and well developed; Negative for cachectic, contractures or unkempt General Appearance ED: well developed and NAD; Negative for unkempt, cachectic, contractures, cyanotic or diaphoretic Nutritional Appearance: Negative for cachectic HEENT Reports moist mucous membranes normocephalic and atraumatic; Negative for trauma or tenderness Eyes PERRL and EOMs intact bilaterally General Eye ED: Negative for other Neck full ROM and supple General: Negative for tenderness Lymph Lymphatic: Negative for other Chest Wall inspection of chest normal and palpation of chest normal Chest: Negative for other Resp normal respiratory effort and clear to auscultation bilaterally Effort and Inspection: Negative for pain with movement Auscultation: Negative for rales, rhonchi or wheezes Cardio regular rate, regular rhythm, S1 normal heart sound, S2 normal heart sound and no murmurs Rate: Negative for bradycardia or tachycardic Rhythm: Negative for abnormal rhythm GI non-tender, non-distended and no masses Inspection: Negative for abdominal distention Auscultation: normoactive bowel sounds Palpation: soft; Negative for tender or guarding Back/Spine no CVA tenderness General Back: Negative for CVA tenderness Cervical Spine: Negative for cervical spine tenderness Thoracic Spine / Upper Back: Negative for thoracic spinal tenderness Lumbar Spine / Lower Back: Negative for lumbar spinal tenderness Extremity normal to inspection and full ROM Extremity Narrative: Except tenderness and swelling of the right thumb and index finger with decreased range of motion due to pain and swelling. No laceration. Neurovascular intact. Neuro oriented x3, CN's II-XII intact bilaterally, moves all extremities and no focal motor deficits Sensorium / Orientation: alert, oriented to person, oriented to place and oriented to time Motor Exam: strength 5/5 throughout Psych mental status grossly normal Appearance: Negative for unkempt Attitude: No agitated Mood & Affect: Negative for depressed, anxious or tearful Skin General Skin Exam: Negative for petechiae Lesions: no lesions Rashes: no rashes MDM MDM MDM Narrative Medical decision making narrative: 46-year-old female [id number] with right index finger and thumb injury at work on a conveyor belt. This is Worker's Comp. X-ray will be obtained. She did not want a thing for pain. Repeat exam unchanged doing well at 9:50 PM. Ice and elevate. Tylenol Motrin for pain. At this time I am unable to access her for any type of ligament or tendon injury. Most likely this is soft tissue injury. But she will need to follow-up with us not improving. She has too much pain and swelling at this time to do that evaluation. Radiography Diagnostic Testing: Right hand x-ray, 3 views, interpreted by myself shows soft tissue swelling of the thumb and index fingers. No fracture. No dislocation. Also interpreted by the radiologist and we agree. Discharge Plan Triage Chief Complaint: Upper Extremity Injury ED Provider: Hans Macdonald Dx/Rx/DC Orders Clinical Impression: Crush injury, Contusion of hand, right, Encounter related to worker's compensation claim Instructions: ED Hand Contusion Prescriptions: No Action pantoprazole 40 mg tablet,delayed release (DR/EC) 40 mg PO DAILY Qty: 90 1RF Primary Care Provider: Petty Cook Referrals: [facility]] - 1 Week if not improving Petty Cook DO [Primary Care Provider] - Activity Restrictions/Additional Instructions: Ice and elevate your hand to decrease pain and swelling. Motrin for pain and swelling. Tylenol for pain. Follow-up if not improving or return if worse. Disposition Disposition: Home, Self Care
--- NOTE | 2022-07-27 19:45 | RAD_ITS ---
INDICATION: trauma: thumb and index EXAMINATION/TECHNIQUE: X-RAY - RIGHT XR Hand Min 3 Views COMPARISON: None. FINDINGS: SOFT TISSUES: No soft tissue swelling or gas. No radiopaque foreign body. BONES/JOINTS: No acute fracture or subluxation.. Normal alignment. Preservation of the joint space.. No sclerotic or destructive changes observed. RAD/Hand Min 3 Views IMPRESSION: Negative. Electronically Signed: Gene Clark DO at 19:56 EST ,
[2022-07-27 21:03] VITALS: RESP 16
== END 2022-07-27 22:00 | disposition home or self-care (01) ==
PROVIDERS: Emergency Provider Emergency Medicine; PCP Family Medicine; Visit Provider Emergency Medicine
DX: S60.221A Contusion of right hand, initial encounter (principal); F17.210 Nicotine dependence, cigarettes, uncomplicated; Z79.899 Other long term (current) drug therapy; W23.0XXA Caught, crushed, jammed, or pinched between moving objects, initial encounter
CPT/HCPCS: 73130; 99282

== ENCOUNTER → 2022-12-21 | Outpatient (CLI) | payer OTHER, SELFPAY | END | disposition home or self-care (01) | PROVIDERS: PCP Family Medicine; Visit Provider Nurse Practitioner Family | DX: N39.0 Urinary tract infection, site not specified (principal) | CPT/HCPCS: 87077; 87086; 87088; 87186 ==

== ENCOUNTER → 2023-06-25 | Outpatient (CLI) | payer OTHER, SELFPAY ==
[2023-06-25 10:39] LABS: Microalbumin,Random Urine 19.4 mg/L (NO RANGE EST.); Microalbumin:Creatinine Ratio 10.2 mg/g CRE (<30 mg/g CRE)
[2023-06-25 10:56] LABS: ALB/GLOB Ratio 0.9 RATIO (0.9-2.4); AST(SGOT) 13 U/L (15-37); Alanine Aminotransfer ALT/SGPT 36 U/L (13-56); Albumin, Serum 3.7 g/dL (3.2-5.0); Alkaline Phosphatase 108 U/L (45-117); Anion Gap 7 (5-15); BUN 11 mg/dL (7-18); BUN/Creat Ratio 21.4 RATIO (10-20); Calcium,Total 8.7 mg/dL (8.5-10.1); Chloride 108 mmol/L (98-107); Cholesterol 142 mg/dL (200); Creatinine, Serum 0.51 mg/dL (0.55-1.02); EST Glomerular Filtration Rate 136 mL/min (>60); Est Glom Filt Rate - Afr Amer 165 mL/min (>60); Globulin 4.2 g/dL (2.2-4.2); Glucose 133 mg/dL (74-106); High Density Lipoprotein 40 mg/dL; Potassium 3.9 mmol/L (3.5-5.1); Protein, Total 7.9 g/dL (6.4-8.2); Sodium Level 138 mmol/L (136-145); Thyroid Stim Hormone (TSH) 4.47 uIU/mL (0.358-3.74); Triglycerides 89 mg/dL; Very Low Density Lipoprotein 18 mg/dL (5-40)
== END | disposition home or self-care (01) ==
LOC: LAB 09:53
PROVIDERS: PCP Family Medicine; Referring Provider Internal Medicine Endocrinology, Diabetes & Metabolism; Visit Provider Internal Medicine Endocrinology, Diabetes & Metabolism
DX: E11.9 Type 2 diabetes mellitus without complications (principal)
CPT/HCPCS: 36415; 80053; 80061; 82043; 82570; 84443